=== PATIENT | female | born 1980 | race Hispanic/Latino ===

== ENCOUNTER 2016-08-07 17:18 | Emergency (ER) | payer OTHER ==
[~2016-08-07] VITALS: Ht 167.6 cm; Wt 2.2 kg
[2016-08-07 17:42] VITALS: BP 145/85; PULSE 90; RESP 14; O2SAT 99
[2016-08-07] MEDS ORDERED: Lidocaine-Epi-Tetracaine Solution 3 mL Syringe TOPICAL ONE (17:50)
--- NOTE | 2016-08-07 18:09 | ED.REPORT ---
HPI-Extremity Problem Upper Date of Service August 07, 2016 ED Provider: Natanael Antonio DO A 35 year old female with no pertinent medical history presents to the ED due to a laceration of her left thumb. The pt was cutting potatoes at home this evening when the knife slipped and cut the tip of her left thumb. The knife was clean, but the pt does not remember when she received her last tetanus shot. Nursing Notes Stated Complaint: CUT TO LEFT THUMB Chief Complaint: Laceration Nursing Notes Reviewed: Yes Allergies: Coded Allergies: gluten (Verified Allergy, Severe, SEVERE ABDOMINAL PAINS, 08/07/16) General Time Seen by MD: 18:09 Chief Complaint Finger injury left 1 Hx Obtained From: Patient Arrived By: Walk-in Onset Occurred: 1 - 4 hours ago Symptom Duration: Since onset Recent Healthcare: No recent doctor visit, No recent hospitalization Similar Sx Previous: No Past Medical History Past Medical History C. difficile Past Surgical History none reported Smoking History Unknown if Ever Smoker Social History Other Social History: Good social support Ambulatory Status Independent Review of Systems Review of Systems Note: laceration to left thumb Musculoskeletal: Reports: Extremity pain, Denies: Back pain, Neck pain Skin: Denies Rash Complete sys rev & neg: except as marked. Respiratory: Denies: Non-productive cough, Shortness of breath Cardiovascular: Denies: Chest pain GI: Denies: Abdominal pain Physical Exam Initial Vital Signs Vital Signs (First) Date Time Temp Pulse Resp B/P Pulse Ox O2 Delivery O2 Flow Rate FiO2 08/07/16 17:42 37.7 90 14 145/85 99 Room Air Initial VS: Reviewed General/Constitutional: Awake, Alert Neck: Atraumatic, Supple, Full range of motion Respiratory / Chest: Atraumatic, Breath sounds NL, Breath sounds = bilat, No respiratory distress Cardiovascular: Heart rate NL, Regular rhythm, Heart sounds NL Upper Extremity / MS: Atraumatic, Full range of motion Wrist / Hand: Full range of motion 3 mm curvilinear laceration to the tip of the left thumb Skin: Color NL, No rash, Warm, Dry Neurologic: Oriented X3, Speech NL, No motor deficits, No sensory deficits Head / Eyes: Atraumatic, Normocephalic, PERRL, EOMI ENT: Atraumatic, Airway patent, Mucous membranes moist Abdomen: Atraumatic, Soft, Non-tender Back: Atraumatic, Full range of motion Lower Extremity / Pelvis / MS: Atraumatic, Full range of motion Psychiatric: Affect NL, Mood NL Interpretation & Diagnostics Pulse Oximetry Interpretation Pulse Oximetry Interpretation: 99% on room air Pulse Oximetry: Pulse Ox normal Procedures Laceration Management Time: 19:42 Procedure Performed by: ED physician Consent / Setup / Site Prep: Informed consent provided, Consent from patient , Time-out performed, Hand hygiene observed, Stand sterile technique Location of Wound: 3 mm curvilinear laceration to the tip of the left thumb Local Anesthesia: Lidocaine w epi 1% Digital Block: Yes Digit Involved: Thumb left Wound Preparation: Normal saline Debridement: None Irrigation: Copious Foreign Body Explore / Removal: Explored for foreign body Repair Skin: Dermabond Suture Technique: Simple Post-Procedure / Complications: Dressing applied, No complications, Condition improved, Tolerated procedure well, Patient stable Re-Eval/Medical Decision Source of Hx: Old records Re-Evaluation/Progress #1: Time of Eval: 19:10 Patient Status: Condition improved Re-Evaluation/Progress Note: Pt rechecked, who is comfortable. Plan for laceration management is discussed. Re-Evaluation/Progress #2: Time of Eval: 19:42 Patient Status: Condition improved Re-Evaluation/Progress Note: Pt rechecked and laceration is performed without complication. The diagnosis and plan for discharge are discussed. The pt understands and agrees with the plan. All questions are addressed at this time. Counseled Regarding: Diagnosis, Need for follow-up, When/why to return to ED Discharge & Departure Impression: Primary Impression: Laceration Disposition: Home Discharge Condition All VS Reviewed: Yes Condition: Stable Patient Instructions: Laceration (GEN) Additional Instructions: The Dermabond will wear off in approximately 7 days and the scar should fade in two to three weeks. Keep the wound clean dry and splinted. Call your primary care physician in the morning to arrange for a follow up appointment this week. Return to the emergency department if you develop any new or worsening symptoms. Watch for signs of infection: Pain, redness, swelling or discharge and let us know if any of these occur. I recommend that you have a tetanus vaccination. Discuss this with your primary care physician. You may also comeback here for tetanus update. Referrals: Merrill Landin MD (PCP) Scribe Attestation Portions of this note were transcribed by Burke Nolan. I, Dr. Antonio personally performed the history, physical exam and medical decision-making; I reviewed and confirmed the accuracy of the information in the transcribed note. Signed by: Best Martin, 08/[birth year]16 and 1946. copies to: Merrill Landin MD, Todd P DO August 07, 2016 18:09 BURKE NOLAN August 07, 2016 18:17
[2016-08-07] MEDS ORDERED: Tissue Adhesive Liq (CS Supplied) TOPICAL ONE (18:30)
[2016-08-07 20:01] VITALS: PULSE 87; RESP 16; O2SAT 99
== END 2016-08-07 20:05 | disposition home or self-care (01) ==
LOC: SED 17:18
DX: S61.012A Laceration without foreign body of left thumb without damage to nail, initial encounter (principal); W26.0XXA Contact with knife, initial encounter; Y93.G1 Activity, food preparation and clean up; Y92.9 Unspecified place or not applicable; Y99.8 Other external cause status